=== PATIENT | female | born 1960 | race Caucasian/White ===

== ENCOUNTER 2020-02-07 09:00 | Outpatient (RCR) | payer OTHER, SELFPAY ==
--- NOTE | 2019-11-01 18:29 | PT.OIE ---
Current Diagnoses Pain in right shoulder (11/01/19) Stiffness of right shoulder, not elsewhere classified (11/01/19) Other specified postprocedural states (11/01/19) Visit Care Team Role Provider Type Fatou Harkins MD Primary Care Provider Physician Specialty: Family Practice Address: [place], [address] Email: Meeta Haley MD Attending Provider Non-Staff Referring Provider Specialty: Medical Address: Sunitha Smith [address], [address] Email: Physical Therapy Initial Evaluation PT-OP-A Visit Information Start: 10/31/19 15:46 Freq: Status: Active Protocol: Document 11/01/19 15:18 [facility]AK (Rec: 11/01/19 16:41 SAK [id number]) Out-Patient Physical Therapy Visit Information Visit Information Visit Type Initial Evaluation Visit Start Time 15:18 Visit Stop Time 16:18 Total Visit Minutes 60 Visit Number 1 Evaluation Information Evaluation Date 11/01/19 Precautions Precautions surgical drain just removed 10/29/19 PT-OP-B Current Condition Start: 10/31/19 15:46 Freq: Status: Active Protocol: Document 11/01/19 15:18 SAK (Rec: 11/01/19 16:38 SAK [id number]) Current Condition History of Current Condition Onset Date 04/13/19 Current Complaints pain and decreased ROM right shoulder, concern about lymphedema tightness History of Current Condition Diagnosed with breast cancer . Under went 15 rounds chemo plus 2 surgeries; lumpectomy with 2 lymph nodes removed September 18, October 17 7 more lymph nodes removed. Considering radiation as recommended by her physician. No evidence for metastasis. Had drain removed 10/29/19, feels tight and burning in right axilla. Concerned about regaining UE ROM and preventing lymphedema. States confusing guidance from physician office about what she can and can't do. Prior Treatments and Tests as above Future Testing and Treatments Planned possible radiation Treatment Goals Patient/Caregiver Goals Regain full active ROM of her right shoulder, screen for lymphedema and receive education regarding lymphedema prevention. Prior Functional Status Baseline Function- ADL's Independent Baseline Function- Recreation/Hobbies no limitations Current Functional Impairments (Reported) Functional Limitations- ADL's unable to reach above her head or behind her back without pain Functional Limitations- Recreation/ unable to reach overhead or Hobbies behind her back without pain PT-OP-C Subjective Start: 10/31/19 15:46 Freq: Status: Active Protocol: Document 11/01/19 17:52 [facility] (Rec: 11/01/19 18:19 [facility] [id number]) OP-PT Pain Assessment Pain Assessment Grid Paper Pain Assessment Grid Completed Yes Location right axilla Intensity 6 Scale Used Numeric (0 - 10) Description Aching,Burning Frequency Frequent Home Pain Medication Use Pain Medications Used Yes Pain Behaviors Pain Behaviors Facial Grimacing,Guarding PT-OP-J Posture/Palpation/Skin Start: 10/31/19 15:46 Freq: Status: Active Protocol: Document 11/01/19 17:52 [facility] (Rec: 11/01/19 18:19 [facility] [id number]) Posture Evaluation Position Sitting Head/C-Spine Posture Forward Head T-Spine Posture Increased Kyphosis Palpation Assessment Location right axilla Palpation Findings Edema,Tenderness Skin Assessment Incisional Assessment Incision Appearance/Comments well-healing, mildly pink surgical scars right axilla PT-OP-K Range of Motion Start: 10/31/19 15:46 Freq: Status: Active Protocol: Document 11/01/19 17:52 [facility] (Rec: 11/01/19 18:19 [facility] [id number]) Shoulder Goniometric Range of Motion Shoulder right Shoulder ROM WFL No Testing Position Supine Flexion 135 Extension 10 Abduction 85 External Rotation at 90 degrees 85 Abduction Internal Rotation 70 Internal Rotation Behind Back (text) L3 left Shoulder ROM WFL Yes Shoulder ROM Limitations Shoulder ROM Limitations Soft Tissue Tightness,Pain, Swelling PT-OP-N Lymphedema Start: 10/31/19 15:46 Freq: Status: Active Protocol: Document 11/01/19 17:52 [facility] (Rec: 11/01/19 18:19 [facility] [id number]) Lymphedema Measurements Upper Extremity Circumference Measurements Right Affected MCP 19.1 cm Wrist 15.9 cm 5 cm From Distal Crease 15.7 cm 10 cm From Distal Crease 17.4 cm 15 cm From Distal Crease 19.9 cm 20 cm From Distal Crease 21.7 cm 25 cm From Distal Crease 23.3 cm 30 cm From Distal Crease 23 cm 35 cm From Distal Crease 25.5 cm 40 cm From Distal Crease 26.3 cm 45 cm From Distal Crease 29.9 cm Axilla 39 cm Left Unaffected MCP 18.5 cm Wrist 15.6 cm 5 cm From Distal Crease 15.5 cm 10 cm From Distal Crease 17 cm 15 cm From Distal Crease 20.5 cm 20 cm From Distal Crease 22.4 cm 25 cm From Distal Crease 23.4 cm 30 cm From Distal Crease 23.1 cm 35 cm From Distal Crease 25 cm 40 cm From Distal Crease 27 cm 45 cm From Distal Crease 29.8 cm Axilla 36.5 cm PT-OP-Q Treatments Start: 10/31/19 15:46 Freq: Status: Active Protocol: Document 11/01/19 17:52 [facility] (Rec: 11/01/19 18:19 [facility] [id number]) Self-Care/Home Management Treatment Education Patient Education Home Exercise Program Lymphedema Treatment Patient Education Lymphedema Pathology verbal instruction with use of lymph system anatomy Lymphedema Prevention given written instructions and discussed Lymphedema Precautions given written instructions and discussed Compression Garments discussed obtaining compression sleeve for right UE for prevention Self Manual Lymphatic Drainage instructed and given written instructions Other instructed in HEP for gentle shoulder ROM Other Other Instruction in use of gentle ice for right axilla. PT-OP-T Assessment and Plan Start: 10/31/19 15:46 Freq: Status: Active Protocol: Document 11/01/19 17:52 [facility] (Rec: 11/01/19 18:19 [facility] [id number]) Physical Therapy Assessment Rehab Potential Rehabilitation Potential Good Evaluation Complexity Number of Personal Factors/Comorbidities 1-2 Number of Body Systems Impaired 4 or More Clinical Presentation at Evaluation Evolving Impairments Impairments Edema,Pain,ROM,Soft Tissue Mobility Goals Five Impairment knowledge deficit regarding lymphedema prevention Group Home Goal (LTG) Patient will demonstrate good understanding of lymphedema prevention and precautions, and obtain compression sleeve for right UE for prevention of lymphedema with heavy activity and for plane travel LTG Duration 12/31/19 Four Impairment soft tissue mobility Group Home Goal (LTG) Improve scar mobility of incisions to WNL to decrease paini and improve function of right shoulder LTG Duration 12/31/19 Three Impairment ROM Group Home Goal (LTG) Improve ROM to WNL to allow full active use of right UE with all usual activities LTG Duration 12/31/19 Two Impairment pain Import Export Coordinator Goal (LTG) reduce pain right axilla to no greater than 2/10 LTG Duration 12/31/19 One Impairment edema right axilla Import Export Coordinator Goal (LTG) Reduce edema right axilla to no greater than 1 cm difference as compared to left LTG Duration 12/31/19 Assessment Summary Assessment Patient presents to PT following right breast lumpectomy and lymph node removals most recently 10/18/19 with drain removal 10/29/19. Evaluation was performed with no evidence for lymphedema right UE, but with apparent post-op swelling right axilla which will need to be monitored for any development of lymphedema. Her incisions are healing well. Range of motion is decreased in her right UE and she was instructed in gentle therapeutic exercises for ROM, and was instructed in lymphedema precautions and prevention. Written information was given, as well as written HEP, and was given information regarding obtaining compression sleeve. She would benefit from skilled PT to address above PT goals to minimize her pain and swelling, improve soft tissue mobility and return her to full active use of her right UE. She is highly motivated and receptive to instruction. Physical Therapy Plan Frequency and Duration Frequency of Treatment 1x/Week Duration of Treatment 8 wks Plan of Care Start Date 11/01/19 Plan of Care End Date 12/31/19 Therapeutic Interventions Therapeutic Interventions Aquatic Therapy,Home Exercise Program,Manual Therapy,Patient /Caregiver Education,Self-Care /Home Management,Soft Tissue Mobilization,Taping, Therapeutic Activities, Therapeutic Exercises Modalities Cold Pack/Ice Massage Next Visit Focus/Plan Next Note Type Treatment Note Next Visit Plan Review HEP, gentle progression of ther ex for right UE ROM, continue patient education, initiate scar massage if incisions fully healed and instruct in self-massage.
--- NOTE | 2019-11-01 18:30 | PT.OPPOC ---
Physical, Occupational & Speech Therapy At [facility] Current Diagnoses Pain in right shoulder (11/01/19) Stiffness of right shoulder, not elsewhere classified (11/01/19) Other specified postprocedural states (11/01/19) Visit Care Team Role Provider Type Fatou Harkins MD Primary Care Provider Physician Specialty: Family Practice Address: [place], [address] Email: Meeta Haley MD Attending Provider Non-Staff Referring Provider Specialty: Medical Address: [address] [place] [address], [place], [address] Email: Plan Of Care PT-OP-T Assessment and Plan Start: 10/31/19 15:46 Freq: Status: Active Protocol: Document 11/01/19 17:52 [facility] (Rec: 11/01/19 18:19 [facility] [id number]) Physical Therapy Assessment Rehab Potential Rehabilitation Potential Good Evaluation Complexity Number of Personal Factors/Comorbidities 1-2 Number of Body Systems Impaired 4 or More Clinical Presentation at Evaluation Evolving Impairments Impairments Edema,Pain,ROM,Soft Tissue Mobility Goals Five Impairment knowledge deficit regarding lymphedema prevention Snf Goal (LTG) Patient will demonstrate good understanding of lymphedema prevention and precautions, and obtain compression sleeve for right UE for prevention of lymphedema with heavy activity and for plane travel LTG Duration 12/31/19 Four Impairment soft tissue mobility Snf Goal (LTG) Improve scar mobility of incisions to WNL to decrease paini and improve function of right shoulder LTG Duration 12/31/19 Three Impairment ROM Snf Goal (LTG) Improve ROM to WNL to allow full active use of right UE with all usual activities LTG Duration 12/31/19 Two Impairment pain Snf Goal (LTG) reduce pain right axilla to no greater than 2/10 LTG Duration 12/31/19 One Impairment edema right axilla Puller Out Goal (LTG) Reduce edema right axilla to no greater than 1 cm difference as compared to left LTG Duration 12/31/19 Assessment Summary Assessment Patient presents to PT following right breast lumpectomy and lymph node removals most recently 10/18/19 with drain removal 10/29/19. Evaluation was performed with no evidence for lymphedema right UE, but with apparent post-op swelling right axilla which will need to be monitored for any development of lymphedema. Her incisions are healing well. Range of motion is decreased in her right UE and she was instructed in gentle therapeutic exercises for ROM, and was instructed in lymphedema precautions and prevention. Written information was given, as well as written HEP, and was given information regarding obtaining compression sleeve. She would benefit from skilled PT to address above PT goals to minimize her pain and swelling, improve soft tissue mobility and return her to full active use of her right UE. She is highly motivated and receptive to instruction. Physical Therapy Plan Frequency and Duration Frequency of Treatment 1x/Week Duration of Treatment 8 wks Plan of Care Start Date 11/01/19 Plan of Care End Date 12/31/19 Therapeutic Interventions Therapeutic Interventions Aquatic Therapy,Home Exercise Program,Manual Therapy,Patient /Caregiver Education,Self-Care /Home Management,Soft Tissue Mobilization,Taping, Therapeutic Activities, Therapeutic Exercises Modalities Cold Pack/Ice Massage Next Visit Focus/Plan Next Note Type Treatment Note Next Visit Plan Review HEP, gentle progression of ther ex for right UE ROM, continue patient education, initiate scar massage if incisions fully healed and instruct in self-massage. Plan of Care Dates Plan of Care Start Date 11/01/19 Plan of Care End Date 12/31/19 Electronically Signed by: Muna Fuentes, PT 11/01/19 0187 Please Sign and Return: I have reviewed this Plan of Care and certify that the skilled therapy services above are required to meet the patient?s needs. Physician Signature Date Printed Name and Credentials Clinical Instructor Signature Printed Name and Credentials
--- NOTE | 2019-11-21 16:53 | PT.OTN ---
Current Diagnoses Pain in right shoulder (11/21/19) Stiffness of right shoulder, not elsewhere classified (11/21/19) Other specified postprocedural states (11/21/19) Physical Therapy Treatment Note PT-OP-A Visit Information Start: 10/31/19 15:46 Freq: Status: Active Protocol: Document 11/21/19 11:14 [facility] (Rec: 11/21/19 12: SAK [id number]) Out-Patient Physical Therapy Visit Information Visit Information Visit Type Treatment Note Visit Start Time 11:15 Visit Stop Time 12:21 Total Visit Minutes 71 Visit Number 2 Evaluation Information Evaluation Date 11/01/19 PT-OP-B Current Condition Start: 10/31/19 15:46 Freq: Status: Active Protocol: Document 11/21/19 11:14 [facility] (Rec: 11/21/19 12: SAK [id number]) Current Condition History of Current Condition Onset Date 04/13/19 Current Complaints pain and decreased ROM right shoulder, concern about lymphedema tightness History of Current Condition Diagnosed with breast cancer . Under went 15 rounds chemo plus 2 surgeries; lumpectomy with 2 lymph nodes removed September 18, October 17 7 more lymph nodes removed. Considering radiation as recommended by her physician. No evidence for metastasis. Had drain removed 10/29/19, feels tight and burning in right axilla. Concerned about regaining UE ROM and preventing lymphedema. States confusing guidance from physician office about what she can and can't do. Prior Treatments and Tests as above Future Testing and Treatments Planned possible radiation PT-OP-C Subjective Start: 10/31/19 15:46 Freq: Status: Active Protocol: Document 11/21/19 11:14 [facility] (Rec: 11/21/19 12: [facility]AK [id number]) OP-PT Subjective Patient Comments Patient Comments Thinks she is having some swelling in elbow and under her arm, looking at ordering a compression sleeve. Having most pain at night, usually having to take a 1/2 Hydrocodone. Saw surgeon last week and both patient and surgeon noting a little redness in breast. Patient able to palpate axillary cording which she was educated in. PT-OP-J Posture/Palpation/Skin Start: 10/31/19 15:46 Freq: Status: Active Protocol: Document 11/01/19 17:52 [facility] (Rec: 11/01/19 18:19 [facility]AK [id number]) Posture Evaluation Position Sitting Head/C-Spine Posture Forward Head T-Spine Posture Increased Kyphosis Palpation Assessment Location right axilla Palpation Findings Edema,Tenderness Skin Assessment Incisional Assessment Incision Appearance/Comments well-healing, mildly pink surgical scars right axilla PT-OP-K Range of Motion Start: 10/31/19 15:46 Freq: Status: Active Protocol: Document 11/01/19 17:52 [facility] (Rec: 11/01/19 18:19 [facility]AK [id number]) Shoulder Goniometric Range of Motion Shoulder right Shoulder ROM WFL No Testing Position Supine Flexion 135 Extension 10 Abduction 85 External Rotation at 90 degrees 85 Abduction Internal Rotation 70 Internal Rotation Behind Back (text) L3 left Shoulder ROM WFL Yes Shoulder ROM Limitations Shoulder ROM Limitations Soft Tissue Tightness,Pain, Swelling PT-OP-N Lymphedema Start: 10/31/19 15:46 Freq: Status: Active Protocol: Document 11/21/19 11:14 [facility] (Rec: 11/21/19 16:53 [facility] [id number]) Lymphedema Measurements Upper Extremity Circumference Measurements Right Affected MCP 19.1 cm Wrist 15.9 cm 5 cm From Distal Crease 15.5 cm 10 cm From Distal Crease 17 cm 15 cm From Distal Crease 19.6 cm 20 cm From Distal Crease 21.5 cm 25 cm From Distal Crease 23.2 cm 30 cm From Distal Crease 22.9 cm 35 cm From Distal Crease 24.7 cm 40 cm From Distal Crease 26.7 cm 45 cm From Distal Crease 30.1 cm Axilla 38 cm Comments Lymphedema Comments 11/21/19: trunk at praveen axilla: 96.0cm trunk at nipple line: 105.7cm PT-OP-Q Treatments Start: 10/31/19 15:46 Freq: Status: Active Protocol: Document 11/21/19 11:14 [facility] (Rec: 11/21/19 16:53 [facility]AK [id number]) Therapeutic Exercises Supine Exercises hands behind head stretch Reps/Minutes 2x shoulder ER Reps/Minutes 5x Comments end range stretch shoulder flex Equipment Used wand Reps/Minutes 10x Comments end range stretch after 10 Sitting Exercises pulleys Comments next session Lymphedema Treatment Manual Lymphatic Drainage Location right UE and breast Duration 25 Comments with manual release technique for axillary cording Lymphedema Wrapping Other Instructed in use of sports bra, compression shape wear, or obtaining compression bra, issued ship bags for use in current bra. Compression Garment Assessment Compression Garment Assessment Details Discussed options and referred patient to Sarah or [facility] Patient Education Compression Garments As above Self Manual Lymphatic Drainage Verbal discussion and demonstration Other instructed in very gradual resumption of activity, wait at least 2 more weeks for Yoga , then do short, gentle to start, monitoring for any increase in swelling. PT-OP-T Assessment and Plan Start: 10/31/19 15:46 Freq: Status: Active Protocol: Document 11/21/19 11:14 [facility] (Rec: 11/21/19 12:26 SAK [id number]) Physical Therapy Assessment Goals Five Impairment knowledge deficit regarding lymphedema prevention Pay Per Click Strategist Goal (LTG) Patient will demonstrate good understanding of lymphedema prevention and precautions, and obtain compression sleeve for right UE for prevention of lymphedema with heavy activity and for plane travel LTG Duration 12/31/19 Four Impairment soft tissue mobility Jail Goal (LTG) Improve scar mobility of incisions to WNL to decrease paini and improve function of right shoulder LTG Duration 12/31/19 Three Impairment ROM Pay Per Click Strategist Goal (LTG) Improve ROM to WNL to allow full active use of right UE with all usual activities LTG Duration 12/31/19 Two Impairment pain Jail Goal (LTG) reduce pain right axilla to no greater than 2/10 LTG Duration 12/31/19 One Impairment edema right axilla Jail Goal (LTG) Reduce edema right axilla to no greater than 1 cm difference as compared to left LTG Duration 12/31/19 Assessment Summary Assessment Demonstrating improvement in right shoulder ROM, persistent pain rquiring use of 1/2 Hydrocodone most nights. Patient has minimal (less than 1cm) circumferential changes in her arm, most the same, but noting increased subaxillary swelling as well as some palpable axillary cording of 2 .5 long. Reviewed patient's HEP, reviewed need to progress increase in activity slowly, performed MLD and patient was instructed. Issued foam chip bags for use in bra and was instructed to try sports bra as well as consult Sarah or [facility] to obtain compression sleeve as well as compression bra. Patient to return next week. Physical Therapy Plan Frequency and Duration Frequency of Treatment 1x/Week Duration of Treatment 8 wks Plan of Care Start Date 11/01/19 Plan of Care End Date 12/31/19 Therapeutic Interventions Therapeutic Interventions Aquatic Therapy,Home Exercise Program,Manual Therapy,Patient /Caregiver Education,Self-Care /Home Management,Soft Tissue Mobilization,Taping, Therapeutic Activities, Therapeutic Exercises Modalities Cold Pack/Ice Massage Next Visit Focus/Plan Next Note Type Treatment Note Next Visit Plan circumferential measurements, review home program of self massage, ther ex, evaluate use of foam chip bags, any compression bra or sleeve. Continue ROM and lymphedema management.
--- NOTE | 2019-11-28 16:32 | PT.OTN ---
Current Diagnoses Pain in right shoulder (11/28/19) Stiffness of right shoulder, not elsewhere classified (11/28/19) Other specified postprocedural states (11/28/19) Physical Therapy Treatment Note PT-OP-A Visit Information Start: 10/31/19 15:46 Freq: Status: Active Protocol: Document 11/28/19 12:47 SAK (Rec: 11/28/19 12:49 SAK [id number]) Out-Patient Physical Therapy Visit Information Visit Information Visit Type Treatment Note Visit Start Time 12:54 Visit Stop Time 13:47 Total Visit Minutes 53 Visit Number 3 Evaluation Information Evaluation Date 11/01/19 PT-OP-B Current Condition Start: 10/31/19 15:46 Freq: Status: Active Protocol: Document 11/21/19 11:14 SAK (Rec: 11/21/19 12:26 SAK [id number]) Current Condition History of Current Condition Onset Date 04/13/19 Current Complaints pain and decreased ROM right shoulder, concern about lymphedema tightness History of Current Condition Diagnosed with breast cancer . Under went 15 rounds chemo plus 2 surgeries; lumpectomy with 2 lymph nodes removed September 18, October 17 7 more lymph nodes removed. Considering radiation as recommended by her physician. No evidence for metastasis. Had drain removed 10/29/19, feels tight and burning in right axilla. Concerned about regaining UE ROM and preventing lymphedema. States confusing guidance from physician office about what she can and can't do. Prior Treatments and Tests as above Future Testing and Treatments Planned possible radiation PT-OP-C Subjective Start: 10/31/19 15:46 Freq: Status: Active Protocol: Document 11/28/19 12:47 SAK (Rec: 11/28/19 16:40 SAK [id number]) OP-PT Subjective Patient Comments Patient Comments Patient reports concern over possible increase in swelling in armpit, breast, but feels arm ok. Has been wearing post -op bra, chip bag uncomfortable. Also c/o tenderness right lower lateral ribcage for no known reason. PT-OP-J Posture/Palpation/Skin Start: 10/31/19 15:46 Freq: Status: Active Protocol: Document 11/01/19 17:52 SAK (Rec: 11/01/19 18:19 SAK [id number]) Posture Evaluation Position Sitting Head/C-Spine Posture Forward Head T-Spine Posture Increased Kyphosis Palpation Assessment Location right axilla Palpation Findings Edema,Tenderness Skin Assessment Incisional Assessment Incision Appearance/Comments well-healing, mildly pink surgical scars right axilla PT-OP-K Range of Motion Start: 10/31/19 15:46 Freq: Status: Active Protocol: Document 11/01/19 17:52 SAK (Rec: 11/01/19 18:19 SAK [id number]) Shoulder Goniometric Range of Motion Shoulder right Shoulder ROM WFL No Testing Position Supine Flexion 135 Extension 10 Abduction 85 External Rotation at 90 degrees 85 Abduction Internal Rotation 70 Internal Rotation Behind Back (text) L3 left Shoulder ROM WFL Yes Shoulder ROM Limitations Shoulder ROM Limitations Soft Tissue Tightness,Pain, Swelling PT-OP-N Lymphedema Start: 10/31/19 15:46 Freq: Status: Active Protocol: Document 11/28/19 12:47 SAK (Rec: 11/28/19 16:38 SAK [id number]) Lymphedema Measurements Comments Lymphedema Comments 11/28/19: trunk at praveen subaxilla : 100 cm trunk at nipple line: 109 cm PT-OP-Q Treatments Start: 10/31/19 15:46 Freq: Status: Active Protocol: Document 11/28/19 12:47 SAK (Rec: 11/28/19 16:38 [facility] [id number]) Therapeutic Exercises Supine Exercises deep breathing Supine Exercise Name abdominal, lateral chest hands behind head stretch Comments HEP shoulder ER Comments HEP shoulder flex Comments HEP Sidelying Exercises shoulder abduction Reps/Minutes 5x reach and roll Reps/Minutes 5x Lymphedema Treatment Manual Lymphatic Drainage Location right trunk and breast Duration 32 Comments with manual release technique for axillary cording, MFR subaxillary region with instruction for gentle self MFR Lymphedema Wrapping Other Reviewed use of sports bra, compression shape wear, or obtaining compression bra, issued new chip bag, foam, and soft spot for use in current bra. Compression Garment Assessment Compression Garment Assessment Details Patient to consult with [facility] PT-OP-T Assessment and Plan Start: 10/31/19 15:46 Freq: Status: Active Protocol: Document 11/28/19 12:47 SAK (Rec: 11/28/19 12:49 SAK [id number]) Physical Therapy Assessment Goals Five Impairment knowledge deficit regarding lymphedema prevention [facility] Goal (LTG) Patient will demonstrate good understanding of lymphedema prevention and precautions, and obtain compression sleeve for right UE for prevention of lymphedema with heavy activity and for plane travel LTG Duration 12/31/19 Four Impairment soft tissue mobility [facility] Goal (LTG) Improve scar mobility of incisions to WNL to decrease paini and improve function of right shoulder LTG Duration 12/31/19 Three Impairment ROM Wire Rigger Goal (LTG) Improve ROM to WNL to allow full active use of right UE with all usual activities LTG Duration 12/31/19 Two Impairment pain Wire Rigger Goal (LTG) reduce pain right axilla to no greater than 2/10 LTG Duration 12/31/19 One Impairment edema right axilla Wire Rigger Goal (LTG) Reduce edema right axilla to no greater than 1 cm difference as compared to left LTG Duration 12/31/19 Assessment Summary Assessment Circumferential measurements in trunk at subaxillary region and nipple line increased from last session. She was issued chip bag, channeled foam, and soft spot for breast and trunk lymphedema reduction as options for inside bra. She has just been wearing post-op bra which is not providing adequate compression. She was instructed to obtain either a sports bra or compression bra; plans to make appointment with Lamont at [facility] to consult with them about this. In the meantime will use above bra inserts. She has been compliant with self massage and ther ex. She was instructed in self MFR for gentle subaxillary release and demonstrated good understanding. Also instructed in upper trunk rotation and sidelying shoulder abduction exercises. Uncertain cause of lower lateral ribcage tenderness, patient denies any trauma, will watch, contact physician if doesn't improve or worsens. Physical Therapy Plan Frequency and Duration Frequency of Treatment 1x/Week Duration of Treatment 8 wks Plan of Care Start Date 11/01/19 Plan of Care End Date 12/31/19 Therapeutic Interventions Therapeutic Interventions Aquatic Therapy,Home Exercise Program,Manual Therapy,Patient /Caregiver Education,Self-Care /Home Management,Soft Tissue Mobilization,Taping, Therapeutic Activities, Therapeutic Exercises Modalities Cold Pack/Ice Massage Next Visit Focus/Plan Next Note Type Treatment Note Next Visit Plan Circumferential measurements. Continue ROM and lymphedema management, manual treatments for soft tissue mobilization.
--- NOTE | 2019-11-28 16:41 | PT.OTN ---
Current Diagnoses Pain in right shoulder (11/28/19) Stiffness of right shoulder, not elsewhere classified (11/28/19) Other specified postprocedural states (11/28/19) Physical Therapy Treatment Note PT-OP-A Visit Information Start: 10/31/19 15:46 Freq: Status: Active Protocol: Document 11/28/19 12:47 SAK (Rec: 11/28/19 12:49 SAK [id number]) Out-Patient Physical Therapy Visit Information Visit Information Visit Type Treatment Note Visit Start Time 12:54 Visit Stop Time 13:47 Total Visit Minutes 53 Visit Number 3 Evaluation Information Evaluation Date 11/01/19 PT-OP-B Current Condition Start: 10/31/19 15:46 Freq: Status: Active Protocol: Document 11/21/19 11:14 SAK (Rec: 11/21/19 12:26 SAK [id number]) Current Condition History of Current Condition Onset Date 04/13/19 Current Complaints pain and decreased ROM right shoulder, concern about lymphedema tightness History of Current Condition Diagnosed with breast cancer . Under went 15 rounds chemo plus 2 surgeries; lumpectomy with 2 lymph nodes removed September 18, October 17 7 more lymph nodes removed. Considering radiation as recommended by her physician. No evidence for metastasis. Had drain removed 10/29/19, feels tight and burning in right axilla. Concerned about regaining UE ROM and preventing lymphedema. States confusing guidance from physician office about what she can and can't do. Prior Treatments and Tests as above Future Testing and Treatments Planned possible radiation PT-OP-C Subjective Start: 10/31/19 15:46 Freq: Status: Active Protocol: Document 11/28/19 12:47 SAK (Rec: 11/28/19 16:40 SAK [id number]) OP-PT Subjective Patient Comments Patient Comments Patient reports concern over possible increase in swelling in armpit, breast, but feels arm ok. Has been wearing post -op bra, chip bag uncomfortable. Also c/o tenderness right lower lateral ribcage for no known reason. PT-OP-J Posture/Palpation/Skin Start: 10/31/19 15:46 Freq: Status: Active Protocol: Document 11/01/19 17:52 SAK (Rec: 11/01/19 18:19 SAK [id number]) Posture Evaluation Position Sitting Head/C-Spine Posture Forward Head T-Spine Posture Increased Kyphosis Palpation Assessment Location right axilla Palpation Findings Edema,Tenderness Skin Assessment Incisional Assessment Incision Appearance/Comments well-healing, mildly pink surgical scars right axilla PT-OP-K Range of Motion Start: 10/31/19 15:46 Freq: Status: Active Protocol: Document 11/01/19 17:52 SAK (Rec: 11/01/19 18:19 SAK [id number]) Shoulder Goniometric Range of Motion Shoulder right Shoulder ROM WFL No Testing Position Supine Flexion 135 Extension 10 Abduction 85 External Rotation at 90 degrees 85 Abduction Internal Rotation 70 Internal Rotation Behind Back (text) L3 left Shoulder ROM WFL Yes Shoulder ROM Limitations Shoulder ROM Limitations Soft Tissue Tightness,Pain, Swelling PT-OP-N Lymphedema Start: 10/31/19 15:46 Freq: Status: Active Protocol: Document 11/28/19 12:47 SAK (Rec: 11/28/19 16:38 SAK [id number]) Lymphedema Measurements Comments Lymphedema Comments 11/28/19: trunk at praveen subaxilla : trunk at nipple line: PT-OP-Q Treatments Start: 10/31/19 15:46 Freq: Status: Active Protocol: Document 11/28/19 12:47 SAK (Rec: 11/28/19 16:38 [facility] [id number]) Therapeutic Exercises Supine Exercises deep breathing Supine Exercise Name abdominal, lateral chest hands behind head stretch Comments HEP shoulder ER Comments HEP shoulder flex Comments HEP Sidelying Exercises shoulder abduction Reps/Minutes 5x reach and roll Reps/Minutes 5x Lymphedema Treatment Manual Lymphatic Drainage Location right trunk and breast Duration 32 Comments with manual release technique for axillary cording, MFR subaxillary region with instruction for gentle self MFR Lymphedema Wrapping Other Reviewed use of sports bra, compression shape wear, or obtaining compression bra, issued new chip bag, foam, and soft spot for use in current bra. Compression Garment Assessment Compression Garment Assessment Details Patient to consult with [facility] PT-OP-T Assessment and Plan Start: 10/31/19 15:46 Freq: Status: Active Protocol: Document 11/28/19 12:47 SAK (Rec: 11/28/19 12:49 SAK [id number]) Physical Therapy Assessment Goals Five Impairment knowledge deficit regarding lymphedema prevention Care Home Goal (LTG) Patient will demonstrate good understanding of lymphedema prevention and precautions, and obtain compression sleeve for right UE for prevention of lymphedema with heavy activity and for plane travel LTG Duration 12/31/19 Four Impairment soft tissue mobility Care Home Goal (LTG) Improve scar mobility of incisions to WNL to decrease paini and improve function of right shoulder LTG Duration 12/31/19 Three Impairment ROM Care Home Goal (LTG) Improve ROM to WNL to allow full active use of right UE with all usual activities LTG Duration 12/31/19 Two Impairment pain Care Home Goal (LTG) reduce pain right axilla to no greater than 2/10 LTG Duration 12/31/19 One Impairment edema right axilla Care Home Goal (LTG) Reduce edema right axilla to no greater than 1 cm difference as compared to left LTG Duration 12/31/19 Assessment Summary Assessment Circumferential measurements in trunk at subaxillary region and nipple line increased from last session. She was issued chip bag, channeled foam, and soft spot for breast and trunk lymphedema reduction as options for inside bra. She has just been wearing post-op bra which is not providing adequate compression. She was instructed to obtain either a sports bra or compression bra; plans to make appointment with Lamont at [facility] to consult with them about this. In the meantime will use above bra inserts. She has been compliant with self massage and ther ex. She was instructed in self MFR for gentle subaxillary release and demonstrated good understanding. Also instructed in upper trunk rotation and sidelying shoulder abduction exercises. Uncertain cause of lower lateral ribcage tenderness, patient denies any trauma, will watch, contact physician if doesn't improve or worsens. Physical Therapy Plan Frequency and Duration Frequency of Treatment 1x/Week Duration of Treatment 8 wks Plan of Care Start Date 11/01/19 Plan of Care End Date 12/31/19 Therapeutic Interventions Therapeutic Interventions Aquatic Therapy,Home Exercise Program,Manual Therapy,Patient /Caregiver Education,Self-Care /Home Management,Soft Tissue Mobilization,Taping, Therapeutic Activities, Therapeutic Exercises Modalities Cold Pack/Ice Massage Next Visit Focus/Plan Next Note Type Treatment Note Next Visit Plan Circumferential measurements. Continue ROM and lymphedema management, manual treatments for soft tissue mobilization.
--- NOTE | 2019-12-11 14:59 | PT.OTN ---
Current Diagnoses Pain in right shoulder (12/11/19) Stiffness of right shoulder, not elsewhere classified (12/11/19) Other specified postprocedural states (12/11/19) Physical Therapy Treatment Note PT-OP-A Visit Information Start: 10/31/19 15:46 Freq: Status: Active Protocol: Document 12/11/19 09:34 SAK (Rec: 12/11/19 09:26 SAK [id number]) Out-Patient Physical Therapy Visit Information Visit Information Visit Type Treatment Note Visit Note Patient late due to delayed [place] Visit Start Time 09:34 Visit Stop Time 09:50 Total Visit Minutes 16 Visit Number 4 Evaluation Information Evaluation Date 11/01/19 PT-OP-B Current Condition Start: 10/31/19 15:46 Freq: Status: Active Protocol: Document 11/21/19 11:14 SAK (Rec: 11/21/19 12:26 SAK [id number]) Current Condition History of Current Condition Onset Date 04/13/19 Current Complaints pain and decreased ROM right shoulder, concern about lymphedema tightness History of Current Condition Diagnosed with breast cancer . Under went 15 rounds chemo plus 2 surgeries; lumpectomy with 2 lymph nodes removed September 18, October 17 7 more lymph nodes removed. Considering radiation as recommended by her physician. No evidence for metastasis. Had drain removed 10/29/19, feels tight and burning in right axilla. Concerned about regaining UE ROM and preventing lymphedema. States confusing guidance from physician office about what she can and can't do. Prior Treatments and Tests as above Future Testing and Treatments Planned possible radiation PT-OP-C Subjective Start: 10/31/19 15:46 Freq: Status: Active Protocol: Document 12/11/19 09:34 SAK (Rec: 12/11/19 09:26 SAK [id number]) OP-PT Subjective Patient Comments Patient Comments Patient went to [facility] obtained compression bra, concerned about fit. Anticipating start of radiation 12/13/19, needs updated measurements to take to physician this week. Doesn 't feel arm swelling but willing to have it rechecked today as well. Will be having 15 radiation treatments. PT-OP-J Posture/Palpation/Skin Start: 10/31/19 15:46 Freq: Status: Active Protocol: Document 11/01/19 17:52 SAK (Rec: 11/01/19 18:19 [facility] [id number]) Posture Evaluation Position Sitting Head/C-Spine Posture Forward Head T-Spine Posture Increased Kyphosis Palpation Assessment Location right axilla Palpation Findings Edema,Tenderness Skin Assessment Incisional Assessment Incision Appearance/Comments well-healing, mildly pink surgical scars right axilla PT-OP-K Range of Motion Start: 10/31/19 15:46 Freq: Status: Active Protocol: Document 11/01/19 17:52 [facility] (Rec: 11/01/19 18:19 [facility] [id number]) Shoulder Goniometric Range of Motion Shoulder right Shoulder ROM WFL No Testing Position Supine Flexion 135 Extension 10 Abduction 85 External Rotation at 90 degrees 85 Abduction Internal Rotation 70 Internal Rotation Behind Back (text) L3 left Shoulder ROM WFL Yes Shoulder ROM Limitations Shoulder ROM Limitations Soft Tissue Tightness,Pain, Swelling PT-OP-N Lymphedema Start: 10/31/19 15:46 Freq: Status: Active Protocol: Document 12/11/19 09:34 [facility] (Rec: 12/11/19 09:26 [facility] [id number]) Lymphedema Measurements Upper Extremity Circumference Measurements Right Affected MCP 19 cm Wrist 16.1 cm 5 cm From Distal Crease 15.9 cm 10 cm From Distal Crease 17.3 cm 15 cm From Distal Crease 20.3 cm 20 cm From Distal Crease 21.1 cm 25 cm From Distal Crease 23.4 cm 30 cm From Distal Crease 23.6 cm 35 cm From Distal Crease 25.9 cm 40 cm From Distal Crease 28.1 cm 45 cm From Distal Crease 31 cm Comments Lymphedema Comments 11/28/19: trunk at praveen subaxilla : 100 cm trunk at nipple line: 107.4 cm PT-OP-Q Treatments Start: 10/31/19 15:46 Freq: Status: Active Protocol: Document 12/05/19 09:34 [facility] (Rec: 12/11/19 14:47 [facility] [id number]) Lymphedema Treatment Compression Garment Assessment Compression Garment Assessment Details Good fit of compression bra noted. Patient instructed to wear during the day, insert chip bag or soft spot as needed. Obtain compression sleeve as well. Patient Education Self Manual Lymphatic Drainage demonstration with patient return demo PT-OP-T Assessment and Plan Start: 10/31/19 15:46 Freq: Status: Active Protocol: Document 12/11/19 09:34 MAGY (Rec: 12/11/19 09:26 [facility] [id number]) Physical Therapy Assessment Goals Five Impairment knowledge deficit regarding lymphedema prevention [employer] Wafer Goal (LTG) Patient will demonstrate good understanding of lymphedema prevention and precautions, and obtain compression sleeve for right UE for prevention of lymphedema with heavy activity and for plane travel LTG Duration 12/31/19 Four Impairment soft tissue mobility [employer] Wafer Goal (LTG) Improve scar mobility of incisions to WNL to decrease paini and improve function of right shoulder LTG Duration 12/31/19 Three Impairment ROM Halfway Goal (LTG) Improve ROM to WNL to allow full active use of right UE with all usual activities LTG Duration 12/31/19 Two Impairment pain [employer] Wafer Goal (LTG) reduce pain right axilla to no greater than 2/10 LTG Duration 12/31/19 One Impairment edema right axilla Halfway Goal (LTG) Reduce edema right axilla to no greater than 1 cm difference as compared to left LTG Duration 12/31/19 Assessment Summary Assessment Patient circumference at axillary and nipple lines improved likely due to use of compression bra. Right UE measurements have increased indicating need for compression sleeve as well. Patient will pursue this at [facility]. Physical Therapy Plan Frequency and Duration Frequency of Treatment 1x/Week Duration of Treatment 8 wks Plan of Care Start Date 11/01/19 Plan of Care End Date 12/31/19 Therapeutic Interventions Therapeutic Interventions Aquatic Therapy,Home Exercise Program,Manual Therapy,Patient /Caregiver Education,Self-Care /Home Management,Soft Tissue Mobilization,Taping, Therapeutic Activities, Therapeutic Exercises Modalities Cold Pack/Ice Massage Next Visit Focus/Plan Next Note Type Treatment Note Next Visit Plan Circumferential measurements. Continue ROM and lymphedema management, manual treatments for soft tissue mobilization. Instruct patient to avoid compression over irradiated area, MLD to be gentle and with skin damage during radiation will focus on UE lymphedema management.
--- NOTE | 2019-12-17 17:01 | PT.OTN ---
Current Diagnoses Pain in right shoulder (12/17/19) Stiffness of right shoulder, not elsewhere classified (12/17/19) Other specified postprocedural states (12/17/19) Physical Therapy Treatment Note PT-OP-A Visit Information Start: 10/31/19 15:46 Freq: Status: Active Protocol: Document 12/17/19 16:52 SAK (Rec: 12/17/19 16:59 [facility] [id number]) Out-Patient Physical Therapy Visit Information Visit Information Visit Type Treatment Note Visit Start Time 09:45 Visit Stop Time 10:30 Total Visit Minutes 45 Visit Number 5 Evaluation Information Evaluation Date 11/01/19 PT-OP-B Current Condition Start: 10/31/19 15:46 Freq: Status: Active Protocol: Document 11/21/19 11:14 SAK (Rec: 11/21/19 12:26 SAK [id number]) Current Condition History of Current Condition Onset Date 04/13/19 Current Complaints pain and decreased ROM right shoulder, concern about lymphedema tightness History of Current Condition Diagnosed with breast cancer . Under went 15 rounds chemo plus 2 surgeries; lumpectomy with 2 lymph nodes removed September 18, October 17 7 more lymph nodes removed. Considering radiation as recommended by her physician. No evidence for metastasis. Had drain removed 10/29/19, feels tight and burning in right axilla. Concerned about regaining UE ROM and preventing lymphedema. States confusing guidance from physician office about what she can and can't do. Prior Treatments and Tests as above Future Testing and Treatments Planned possible radiation PT-OP-C Subjective Start: 10/31/19 15:46 Freq: Status: Active Protocol: Document 12/17/19 16:52 SAK (Rec: 12/17/19 16:59 [facility] [id number]) OP-PT Subjective Patient Comments Patient Comments Patient reports wearing compression bra and swell spot , [facility] States she feels her swelling is better. Patient has not started radiation yet, may opt not to due to being borderline per her physician. Has 1 more week to decide. PT-OP-J Posture/Palpation/Skin Start: 10/31/19 15:46 Freq: Status: Active Protocol: Document 11/01/19 17:52 SAK (Rec: 11/01/19 18:19 SAK [id number]) Posture Evaluation Position Sitting Head/C-Spine Posture Forward Head T-Spine Posture Increased Kyphosis Palpation Assessment Location right axilla Palpation Findings Edema,Tenderness Skin Assessment Incisional Assessment Incision Appearance/Comments well-healing, mildly pink surgical scars right axilla PT-OP-K Range of Motion Start: 10/31/19 15:46 Freq: Status: Active Protocol: Document 11/01/19 17:52 [facility] (Rec: 11/01/19 18:19 [facility] [id number]) Shoulder Goniometric Range of Motion Shoulder right Shoulder ROM WFL No Testing Position Supine Flexion 135 Extension 10 Abduction 85 External Rotation at 90 degrees 85 Abduction Internal Rotation 70 Internal Rotation Behind Back (text) L3 left Shoulder ROM WFL Yes Shoulder ROM Limitations Shoulder ROM Limitations Soft Tissue Tightness,Pain, Swelling PT-OP-N Lymphedema Start: 10/31/19 15:46 Freq: Status: Active Protocol: Document 12/17/19 16:52 [facility] (Rec: 12/17/19 16:59 [facility] [id number]) Lymphedema Measurements Upper Extremity Circumference Measurements Right Affected MCP 18.5 cm Wrist 15.9 cm 5 cm From Distal Crease 15.9 cm 10 cm From Distal Crease 17.4 cm 15 cm From Distal Crease 19.8 cm 20 cm From Distal Crease 21.5 cm 25 cm From Distal Crease 23.2 cm 30 cm From Distal Crease 22.7 cm 35 cm From Distal Crease 24.6 cm 40 cm From Distal Crease 26.6 cm 45 cm From Distal Crease 29.7 cm Comments Lymphedema Comments trunk at praveen subaxilla: 98.2cm trunk at nipple line: 105.0 cm PT-OP-Q Treatments Start: 10/31/19 15:46 Freq: Status: Active Protocol: Document 12/17/19 16:59 [facility] (Rec: 12/17/19 17:01 [facility] [id number]) Lymphedema Treatment Manual Lymphatic Drainage Location right trunk and breast Duration 32 Comments with manual release technique for axillary cording, MFR subaxillary region Compression Garment Assessment Compression Garment Assessment Details Good fit of compression sleeve , compression bra with swell spot. Other Other circumferential measurements PT-OP-T Assessment and Plan Start: 10/31/19 15:46 Freq: Status: Active Protocol: Document 12/17/19 16:52 [facility] (Rec: 12/17/19 16:59 [facility] [id number]) Physical Therapy Assessment Goals Five Impairment knowledge deficit regarding lymphedema prevention Automated Equipment Engineer Technician Goal (LTG) Patient will demonstrate good understanding of lymphedema prevention and precautions, and obtain compression sleeve for right UE for prevention of lymphedema with heavy activity and for plane travel LTG Duration 12/31/19 Four Impairment soft tissue mobility Automated Equipment Engineer Technician Goal (LTG) Improve scar mobility of incisions to WNL to decrease paini and improve function of right shoulder LTG Duration 12/31/19 Three Impairment ROM Care Home Goal (LTG) Improve ROM to WNL to allow full active use of right UE with all usual activities LTG Duration 12/31/19 Two Impairment pain Automated Equipment Engineer Technician Goal (LTG) reduce pain right axilla to no greater than 2/10 LTG Duration 12/31/19 One Impairment edema right axilla Automated Equipment Engineer Technician Goal (LTG) Reduce edema right axilla to no greater than 1 cm difference as compared to left LTG Duration 12/31/19 Assessment Summary Assessment Good improvement in circumferencial measurements. Patient demonstrated good understanding of correct use and care of compression garments. Continues with HEP and self-massage, deep breathing. Axillary cording decreased but still present. Physical Therapy Plan Frequency and Duration Frequency of Treatment 1x/Week Duration of Treatment 8 wks Plan of Care Start Date 11/01/19 Plan of Care End Date 12/31/19 Therapeutic Interventions Therapeutic Interventions Aquatic Therapy,Home Exercise Program,Manual Therapy,Patient /Caregiver Education,Self-Care /Home Management,Soft Tissue Mobilization,Taping, Therapeutic Activities, Therapeutic Exercises Modalities Cold Pack/Ice Massage Next Visit Focus/Plan Next Note Type Treatment Note Next Visit Plan Circumferential measurements. Continue ROM and lymphedema management, manual treatments for soft tissue mobilization. Instruct patient to avoid compression over irradiated area, MLD to be gentle and with skin damage during radiation will focus on UE lymphedema management.
--- NOTE | 2019-12-24 13:44 | PT.OTN ---
Current Diagnoses Pain in right shoulder (12/24/19) Stiffness of right shoulder, not elsewhere classified (12/24/19) Other specified postprocedural states (12/24/19) Physical Therapy Treatment Note PT-OP-A Visit Information Start: 10/31/19 15:46 Freq: Status: Active Protocol: Document 12/24/19 09:50 SAK (Rec: 12/24/19 13:34 [facility] [id number]) Out-Patient Physical Therapy Visit Information Visit Information Visit Type Treatment Note Visit Start Time 09:48 Visit Stop Time 10:33 Total Visit Minutes 45 Visit Number 6 Evaluation Information Evaluation Date 11/01/19 PT-OP-B Current Condition Start: 10/31/19 15:46 Freq: Status: Active Protocol: Document 11/21/19 11:14 SAK (Rec: 11/21/19 12:26 SAK [id number]) Current Condition History of Current Condition Onset Date 04/13/19 Current Complaints pain and decreased ROM right shoulder, concern about lymphedema tightness History of Current Condition Diagnosed with breast cancer . Under went 15 rounds chemo plus 2 surgeries; lumpectomy with 2 lymph nodes removed September 18, October 17 7 more lymph nodes removed. Considering radiation as recommended by her physician. No evidence for metastasis. Had drain removed 10/29/19, feels tight and burning in right axilla. Concerned about regaining UE ROM and preventing lymphedema. States confusing guidance from physician office about what she can and can't do. Prior Treatments and Tests as above Future Testing and Treatments Planned possible radiation PT-OP-C Subjective Start: 10/31/19 15:46 Freq: Status: Active Protocol: Document 12/24/19 09:50 SAK (Rec: 12/24/19 13:34 [facility] [id number]) OP-PT Subjective Patient Comments Patient Comments Patient expressing anxiety over needing to make decision about radiation, will make after going to [facility] today. Patient continues with self- massage, HEP, wearing compression bra and swell-spot . PT-OP-J Posture/Palpation/Skin Start: 10/31/19 15:46 Freq: Status: Active Protocol: Document 11/01/19 17:52 SAK (Rec: 11/01/19 18:19 SAK [id number]) Posture Evaluation Position Sitting Head/C-Spine Posture Forward Head T-Spine Posture Increased Kyphosis Palpation Assessment Location right axilla Palpation Findings Edema,Tenderness Skin Assessment Incisional Assessment Incision Appearance/Comments well-healing, mildly pink surgical scars right axilla PT-OP-K Range of Motion Start: 10/31/19 15:46 Freq: Status: Active Protocol: Document 11/01/19 17:52 SAK (Rec: 11/01/19 18:19 SAK [id number]) Shoulder Goniometric Range of Motion Shoulder right Shoulder ROM WFL No Testing Position Supine Flexion 135 Extension 10 Abduction 85 External Rotation at 90 degrees 85 Abduction Internal Rotation 70 Internal Rotation Behind Back (text) L3 left Shoulder ROM WFL Yes Shoulder ROM Limitations Shoulder ROM Limitations Soft Tissue Tightness,Pain, Swelling PT-OP-N Lymphedema Start: 10/31/19 15:46 Freq: Status: Active Protocol: Document 12/24/19 09:50 SAK (Rec: 12/24/19 13:34 [facility] [id number]) Lymphedema Measurements Upper Extremity Circumference Measurements Right Affected MCP 19 cm Wrist 16.2 cm 5 cm From Distal Crease 16 cm 10 cm From Distal Crease 17.1 cm 15 cm From Distal Crease 19.9 cm 20 cm From Distal Crease 21.7 cm 25 cm From Distal Crease 23.4 cm 30 cm From Distal Crease 22.7 cm 35 cm From Distal Crease 24.9 cm 40 cm From Distal Crease 26.7 cm 45 cm From Distal Crease 30.2 cm Comments Lymphedema Comments trunk at praveen subax: 97.5cm nipple: 103.5 PT-OP-Q Treatments Start: 10/31/19 15:46 Freq: Status: Active Protocol: Document 12/24/19 09:50 [facility] (Rec: 12/24/19 13:34 [facility] [id number]) Therapeutic Exercises Supine Exercises pec stretch Equipment Used 65 cm therapy ball Reps/Minutes 2x deep breathing Supine Exercise Name abdominal, lateral chest shoulder flex Equipment Used 65 cm therapy ball Reps/Minutes 2x Standing Exercises pec stretch Equipment Used doorway Reps/Minutes 2x Lymphedema Treatment Manual Lymphatic Drainage Location right trunk and breast Duration 30 Comments with manual release technique for axillary cording, MFR subaxillary region Other Other circumferential measurements PT-OP-T Assessment and Plan Start: 10/31/19 15:46 Freq: Status: Active Protocol: Document 12/24/19 09:50 [facility] (Rec: 12/24/19 10:33 [facility] [id number]) Physical Therapy Assessment Goals Five Impairment knowledge deficit regarding lymphedema prevention Long-Term Goal (LTG) Patient will demonstrate good understanding of lymphedema prevention and precautions, and obtain compression sleeve for right UE for prevention of lymphedema with heavy activity and for plane travel LTG Duration 12/31/19 Four Impairment soft tissue mobility Long-Term Goal (LTG) Improve scar mobility of incisions to WNL to decrease paini and improve function of right shoulder LTG Duration 12/31/19 Three Impairment ROM Title I Math Tutor Goal (LTG) Improve ROM to WNL to allow full active use of right UE with all usual activities LTG Duration 12/31/19 Two Impairment pain Title I Math Tutor Goal (LTG) reduce pain right axilla to no greater than 2/10 LTG Duration 12/31/19 One Impairment edema right axilla Long-Term Goal (LTG) Reduce edema right axilla to no greater than 1 cm difference as compared to left LTG Duration 12/31/19 Assessment Summary Assessment Stable circumferential measurements (see details above), improving soft tissue mobility in axilla, scar; responding well to MFR. Decreased axillary cording 50% since eval. REcommend continued skilled physical therapy to help patient fully achieve PT goals. Physical Therapy Plan Frequency and Duration Frequency of Treatment 1x/Week Duration of Treatment 8 wks Plan of Care Start Date 11/01/19 Plan of Care End Date 12/31/19 Therapeutic Interventions Therapeutic Interventions Aquatic Therapy,Home Exercise Program,Manual Therapy,Patient /Caregiver Education,Self-Care /Home Management,Soft Tissue Mobilization,Taping, Therapeutic Activities, Therapeutic Exercises Modalities Cold Pack/Ice Massage Next Visit Focus/Plan Next Note Type Treatment Note Next Visit Plan [facility] to make final decision about [facility]. Continue lymphedema management, soft tissue mobilization, ther ex, manual techniques.
--- NOTE | 2019-12-24 15:08 | PT.OTN ---
Current Diagnoses Pain in right shoulder (12/24/19) Stiffness of right shoulder, not elsewhere classified (12/24/19) Other specified postprocedural states (12/24/19) Physical Therapy Treatment Note PT-OP-A Visit Information Start: 10/31/19 15:46 Freq: Status: Active Protocol: Document 12/24/19 09:50 SAK (Rec: 12/24/19 13:34 [facility] [id number]) Out-Patient Physical Therapy Visit Information Visit Information Visit Type Treatment Note Visit Start Time 09:48 Visit Stop Time 10:33 Total Visit Minutes 45 Visit Number 6 Evaluation Information Evaluation Date 11/01/19 PT-OP-B Current Condition Start: 10/31/19 15:46 Freq: Status: Active Protocol: Document 11/21/19 11:14 SAK (Rec: 11/21/19 12:26 SAK [id number]) Current Condition History of Current Condition Onset Date 04/13/19 Current Complaints pain and decreased ROM right shoulder, concern about lymphedema tightness History of Current Condition Diagnosed with breast cancer . Under went 15 rounds chemo plus 2 surgeries; lumpectomy with 2 lymph nodes removed September 18, October 17 7 more lymph nodes removed. Considering radiation as recommended by her physician. No evidence for metastasis. Had drain removed 10/29/19, feels tight and burning in right axilla. Concerned about regaining UE ROM and preventing lymphedema. States confusing guidance from physician office about what she can and can't do. Prior Treatments and Tests as above Future Testing and Treatments Planned possible radiation PT-OP-C Subjective Start: 10/31/19 15:46 Freq: Status: Active Protocol: Document 12/24/19 09:50 SAK (Rec: 12/24/19 13:34 [facility] [id number]) OP-PT Subjective Patient Comments Patient Comments Patient expressing anxiety over needing to make decision about radiation, will make after going to [facility]. Patient continues with self- massage, HEP, wearing compression bra and swell-spot . PT-OP-J Posture/Palpation/Skin Start: 10/31/19 15:46 Freq: Status: Active Protocol: Document 11/01/19 17:52 SAK (Rec: 11/01/19 18:19 SAK [id number]) Posture Evaluation Position Sitting Head/C-Spine Posture Forward Head T-Spine Posture Increased Kyphosis Palpation Assessment Location right axilla Palpation Findings Edema,Tenderness Skin Assessment Incisional Assessment Incision Appearance/Comments well-healing, mildly pink surgical scars right axilla PT-OP-K Range of Motion Start: 10/31/19 15:46 Freq: Status: Active Protocol: Document 11/01/19 17:52 SAK (Rec: 11/01/19 18:19 SAK [id number]) Shoulder Goniometric Range of Motion Shoulder right Shoulder ROM WFL No Testing Position Supine Flexion 135 Extension 10 Abduction 85 External Rotation at 90 degrees 85 Abduction Internal Rotation 70 Internal Rotation Behind Back (text) L3 left Shoulder ROM WFL Yes Shoulder ROM Limitations Shoulder ROM Limitations Soft Tissue Tightness,Pain, Swelling PT-OP-N Lymphedema Start: 10/31/19 15:46 Freq: Status: Active Protocol: Document 12/24/19 09:50 SAK (Rec: 12/24/19 13:34 [facility] [id number]) Lymphedema Measurements Upper Extremity Circumference Measurements Right Affected MCP 19 cm Wrist 16.2 cm 5 cm From Distal Crease 16 cm 10 cm From Distal Crease 17.1 cm 15 cm From Distal Crease 19.9 cm 20 cm From Distal Crease 21.7 cm 25 cm From Distal Crease 23.4 cm 30 cm From Distal Crease 22.7 cm 35 cm From Distal Crease 24.9 cm 40 cm From Distal Crease 26.7 cm 45 cm From Distal Crease 30.2 cm Comments Lymphedema Comments trunk at praveen subax: 97.5cm nipple: 103.5 PT-OP-Q Treatments Start: 10/31/19 15:46 Freq: Status: Active Protocol: Document 12/24/19 09:50 [facility] (Rec: 12/24/19 13:34 [facility] [id number]) Therapeutic Exercises Supine Exercises pec stretch Equipment Used 65 cm therapy ball Reps/Minutes 2x deep breathing Supine Exercise Name abdominal, lateral chest shoulder flex Equipment Used 65 cm therapy ball Reps/Minutes 2x Standing Exercises pec stretch Equipment Used doorway Reps/Minutes 2x Lymphedema Treatment Manual Lymphatic Drainage Location right trunk and breast Duration 30 Comments with manual release technique for axillary cording, MFR subaxillary region Other Other circumferential measurements PT-OP-T Assessment and Plan Start: 10/31/19 15:46 Freq: Status: Active Protocol: Document 12/24/19 09:50 [facility] (Rec: 12/24/19 10:33 [facility] [id number]) Physical Therapy Assessment Goals Five Impairment knowledge deficit regarding lymphedema prevention Mcc Goal (LTG) Patient will demonstrate good understanding of lymphedema prevention and precautions, and obtain compression sleeve for right UE for prevention of lymphedema with heavy activity and for plane travel LTG Duration 12/31/19 Four Impairment soft tissue mobility Mcc Goal (LTG) Improve scar mobility of incisions to WNL to decrease paini and improve function of right shoulder LTG Duration 12/31/19 Three Impairment ROM Foreign Food Specialty Cook Goal (LTG) Improve ROM to WNL to allow full active use of right UE with all usual activities LTG Duration 12/31/19 Two Impairment pain Foreign Food Specialty Cook Goal (LTG) reduce pain right axilla to no greater than 2/10 LTG Duration 12/31/19 One Impairment edema right axilla Mcc Goal (LTG) Reduce edema right axilla to no greater than 1 cm difference as compared to left LTG Duration 12/31/19 Assessment Summary Assessment Stable circumferential measurements (see details above), improving soft tissue mobility in axilla, scar; responding well to MFR. Decreased axillary cording 50% since eval. REcommend continued skilled physical therapy to help patient fully achieve PT goals. Physical Therapy Plan Frequency and Duration Frequency of Treatment 1x/Week Duration of Treatment 8 wks Plan of Care Start Date 11/01/19 Plan of Care End Date 12/31/19 Therapeutic Interventions Therapeutic Interventions Aquatic Therapy,Home Exercise Program,Manual Therapy,Patient /Caregiver Education,Self-Care /Home Management,Soft Tissue Mobilization,Taping, Therapeutic Activities, Therapeutic Exercises Modalities Cold Pack/Ice Massage Next Visit Focus/Plan Next Note Type Treatment Note Next Visit Plan [facility] to make final decision about radiation. Continue lymphedema management, soft tissue mobilization, ther ex, manual techniques. Modification will be required if patient decides to do radiation treatments.
--- NOTE | 2020-01-07 10:04 | PT-OP ANOTE ---
No treatment due to insurance issues; approval not received yet
--- NOTE | 2020-01-28 10:07 | PT.OTRE ---
Current Diagnoses Pain in right shoulder (01/28/20) Stiffness of right shoulder, not elsewhere classified (01/28/20) Other specified postprocedural states (01/28/20) Visit Care Team Role Provider Type Fatou Harkins MD Primary Care Provider Physician Specialty: Family Practice Address: [place], [address] Email: Meeta Haley MD Attending Provider Non-Staff Referring Provider Specialty: Medical Address: Sunitha Smith [address], [address] Email: Physical Therapy Re-Evaluation PT-OP-A Visit Information Start: 10/31/19 15:46 Freq: Status: Active Protocol: Document 01/28/20 11:13 SAK (Rec: 01/28/20 12:08 SAK [id number]) Out-Patient Physical Therapy Visit Information Visit Information Visit Type Treatment Note Visit Start Time 11:15 Visit Stop Time 12:04 Total Visit Minutes 49 Visit Number 7 Evaluation Information Evaluation Date 11/01/19 PT-OP-B Current Condition Start: 10/31/19 15:46 Freq: Status: Active Protocol: Document 11/21/19 11:14 SAK (Rec: 11/21/19 12:26 SAK [id number]) Current Condition History of Current Condition Onset Date 04/13/19 Current Complaints pain and decreased ROM right shoulder, concern about lymphedema tightness History of Current Condition Diagnosed with breast cancer . Under went 15 rounds chemo plus 2 surgeries; lumpectomy with 2 lymph nodes removed September 18, October 17 7 more lymph nodes removed. Considering radiation as recommended by her physician. No evidence for metastasis. Had drain removed 10/29/19, feels tight and burning in right axilla. Concerned about regaining UE ROM and preventing lymphedema. States confusing guidance from physician office about what she can and can't do. Prior Treatments and Tests as above Future Testing and Treatments Planned possible radiation PT-OP-C Subjective Start: 10/31/19 15:46 Freq: Status: Active Protocol: Document 01/28/20 11:13 SAK (Rec: 01/28/20 12:08 SAK [id number]) OP-PT Subjective Patient Comments Patient Comments Done with radiation, has been measuring, states she started to swell. States her compression and a natural supplementnt Bromelian (sp ?) that also seemed helpful. Continues to do deep breathing and yoga in am, self massage. Has gotten sleeve and wears occasionally PT-OP-J Posture/Palpation/Skin Start: 10/31/19 15:46 Freq: Status: Active Protocol: Document 11/01/19 17:52 SAK (Rec: 11/01/19 18:19 [facility] [id number]) Posture Evaluation Position Sitting Head/C-Spine Posture Forward Head T-Spine Posture Increased Kyphosis Palpation Assessment Location right axilla Palpation Findings Edema,Tenderness Skin Assessment Incisional Assessment Incision Appearance/Comments well-healing, mildly pink surgical scars right axilla PT-OP-K Range of Motion Start: 10/31/19 15:46 Freq: Status: Active Protocol: Document 11/01/19 17:52 SAK (Rec: 11/01/19 18:19 [facility] [id number]) Shoulder Goniometric Range of Motion Shoulder Measured in Degrees right Shoulder ROM WFL No Testing Position Supine Flexion 135 Extension 10 Abduction 85 External Rotation at 90 degrees 85 Abduction Internal Rotation 70 Internal Rotation Behind Back (text) L3 left Shoulder ROM WFL Yes Shoulder ROM Limitations Shoulder ROM Limitations Soft Tissue Tightness,Pain, Swelling PT-OP-N Lymphedema Start: 10/31/19 15:46 Freq: Status: Active Protocol: Document 12/24/19 09:50 SAK (Rec: 12/24/19 13:34 [facility] [id number]) Lymphedema Measurements Upper Extremity Circumference Measurements Right Affected MCP 19 cm Wrist 16.2 cm 5 cm From Distal Crease 16 cm 10 cm From Distal Crease 17.1 cm 15 cm From Distal Crease 19.9 cm 20 cm From Distal Crease 21.7 cm 25 cm From Distal Crease 23.4 cm 30 cm From Distal Crease 22.7 cm 35 cm From Distal Crease 24.9 cm 40 cm From Distal Crease 26.7 cm 45 cm From Distal Crease 30.2 cm Comments Lymphedema Comments trunk at praveen subax: 97.5cm nipple: 103.5 PT-OP-Q Treatments Start: 10/31/19 15:46 Freq: Status: Active Protocol: Document 01/28/20 11:13 SAK (Rec: 01/28/20 12:08 [facility] [id number]) Therapeutic Exercises Supine Exercises pec stretch Equipment Used 75 cm therapy ball Reps/Minutes 2x ea Comments pec major, pec minor, lats deep breathing Supine Exercise Name abdominal, lateral chest Lymphedema Treatment Manual Lymphatic Drainage Location right breast and trunk Duration 30 Comments no axillary cording noted today. Other Other circumferential measurements PT-OP-T Assessment and Plan Start: 10/31/19 15:46 Freq: Status: Active Protocol: Document 01/28/20 11:13 [facility] (Rec: 01/28/20 12:08 [facility] [id number]) Physical Therapy Assessment Goals Five Impairment knowledge deficit regarding lymphedema prevention Cellophaner Goal (LTG) Patient will demonstrate good understanding of lymphedema prevention and precautions, and obtain compression sleeve for right UE for prevention of lymphedema with heavy activity and for plane travel LTG Duration achieved Four Impairment soft tissue mobility Retirement Goal (LTG) Improve scar mobility of incisions to WNL to decrease paini and improve function of right shoulder 01/28/20: good goal progress LTG Duration 03/26/20 Three Impairment ROM Retirement Goal (LTG) Improve ROM to WNL to allow full active use of right UE with all usual activities 01/28/20: good goal progress, tightened during radiation, but making improvements again LTG Duration 03/26/20 Two Impairment pain Cellophaner Goal (LTG) reduce pain right axilla to no greater than 2/10 01/28/20: had been making good progress but due to tissue tightening from radiation has had some increase in pain to 3 -4/10 at times LTG Duration 03/26/20 One Impairment edema right axilla Retirement Goal (LTG) Reduce edema right axilla to no greater than 1 cm difference as compared to left 01/28/20: edema increased s/p radiation, patient wearing compression bra and swell spot as well as self-massage and exercise as instructed. LTG Duration 03/26/20 Assessment Summary Assessment subaxillary measurement decreased, nipple line measurement increased, UE measurements variable with many slight increased likely as result of radiation. Patient doing well with self- care as instructed including skin care, self manual lymphatic drainage, compression through use of swell spot and compression bra , and has obtained a compression sleeve. No palpable axillary cording today. Anticipate with further skilled therapy patient will be able to achieve all her above goals. Physical Therapy Plan Frequency and Duration Frequency of Treatment 1x/Week Duration of Treatment 8 wks Plan of Care Start Date 01/28/20 Plan of Care End Date 03/26/20 Therapeutic Interventions Therapeutic Interventions Aquatic Therapy,Home Exercise Program,Manual Therapy,Patient /Caregiver Education,Self-Care /Home Management,Soft Tissue Mobilization,Taping, Therapeutic Activities, Therapeutic Exercises Modalities Cold Pack/Ice Massage Next Visit Focus/Plan Next Note Type Treatment Note Next Visit Plan circumferential measurements, continue lymphedema management , patient to bring compression sleeve for assessment.
--- NOTE | 2020-01-28 10:08 | PT.OPPOC ---
Physical, Occupational & Speech Therapy At [facility] Current Diagnoses Pain in right shoulder (01/28/20) Stiffness of right shoulder, not elsewhere classified (01/28/20) Other specified postprocedural states (01/28/20) Visit Care Team Role Provider Type Fatou Harkins MD Primary Care Provider Physician Specialty: Family Practice Address: [place], [address] Email: Meeta Haley MD Attending Provider Non-Staff Referring Provider Specialty: Medical Address: [address] [place] [address], [place], [address] Email: Plan Of Care PT-OP-T Assessment and Plan Start: 10/31/19 15:46 Freq: Status: Active Protocol: Document 01/28/20 11:13 SAK (Rec: 01/28/20 12:08 SAK [id number]) Physical Therapy Assessment Goals Five Impairment knowledge deficit regarding lymphedema prevention [employer] Goal (LTG) Patient will demonstrate good understanding of lymphedema prevention and precautions, and obtain compression sleeve for right UE for prevention of lymphedema with heavy activity and for plane travel LTG Duration achieved Four Impairment soft tissue mobility [employer] Goal (LTG) Improve scar mobility of incisions to WNL to decrease paini and improve function of right shoulder 01/28/20: good goal progress LTG Duration 03/26/20 Three Impairment ROM Senior Care Goal (LTG) Improve ROM to WNL to allow full active use of right UE with all usual activities 01/28/20: good goal progress, tightened during radiation, but making improvements again LTG Duration 03/26/20 Two Impairment pain [employer] Goal (LTG) reduce pain right axilla to no greater than 2/10 01/28/20: had been making good progress but due to tissue tightening from radiation has had some increase in pain to 3 -4/10 at times LTG Duration 03/26/20 One Impairment edema right axilla Senior Care Goal (LTG) Reduce edema right axilla to no greater than 1 cm difference as compared to left 01/28/20: edema increased s/p radiation, patient wearing compression bra and swell spot as well as self-massage and exercise as instructed. LTG Duration 03/26/20 Assessment Summary Assessment subaxillary measurement decreased, nipple line measurement increased, UE measurements variable with many slight increased likely as result of radiation. Patient doing well with self- care as instructed including skin care, self manual lymphatic drainage, compression through use of swell spot and compression bra , and has obtained a compression sleeve. No palpable axillary cording today. Anticipate with further skilled therapy patient will be able to achieve all her above goals. Physical Therapy Plan Frequency and Duration Frequency of Treatment 1x/Week Duration of Treatment 8 wks Plan of Care Start Date 01/28/20 Plan of Care End Date 03/26/20 Therapeutic Interventions Therapeutic Interventions Aquatic Therapy,Home Exercise Program,Manual Therapy,Patient /Caregiver Education,Self-Care /Home Management,Soft Tissue Mobilization,Taping, Therapeutic Activities, Therapeutic Exercises Modalities Cold Pack/Ice Massage Next Visit Focus/Plan Next Note Type Treatment Note Next Visit Plan circumferential measurements, continue lymphedema management , patient to bring compression sleeve for assessment. Plan of Care Dates Plan of Care Start Date 01/28/20 Plan of Care End Date 03/26/20 Electronically Signed by: Muna Fuentes, PT 01/30/20 1009 Please Sign and Return: I have reviewed this Plan of Care and certify that the skilled therapy services above are required to meet the patient?s needs. Physician Signature Date Printed Name and Credentials Clinical Instructor Signature Printed Name and Credentials
--- NOTE | 2020-01-28 16:05 | PT.OTN ---
Current Diagnoses Pain in right shoulder (01/28/20) Stiffness of right shoulder, not elsewhere classified (01/28/20) Other specified postprocedural states (01/28/20) Physical Therapy Treatment Note PT-OP-A Visit Information Start: 10/31/19 15:46 Freq: Status: Active Protocol: Document 01/28/20 11:13 SAK (Rec: 01/28/20 12:08 SAK [id number]) Out-Patient Physical Therapy Visit Information Visit Information Visit Type Treatment Note Visit Start Time 11:15 Visit Stop Time 12:04 Total Visit Minutes 49 Visit Number 7 Evaluation Information Evaluation Date 11/01/19 PT-OP-B Current Condition Start: 10/31/19 15:46 Freq: Status: Active Protocol: Document 11/21/19 11:14 SAK (Rec: 11/21/19 12:26 SAK [id number]) Current Condition History of Current Condition Onset Date 04/13/19 Current Complaints pain and decreased ROM right shoulder, concern about lymphedema tightness History of Current Condition Diagnosed with breast cancer . Under went 15 rounds chemo plus 2 surgeries; lumpectomy with 2 lymph nodes removed September 18, October 17 7 more lymph nodes removed. Considering radiation as recommended by her physician. No evidence for metastasis. Had drain removed 10/29/19, feels tight and burning in right axilla. Concerned about regaining UE ROM and preventing lymphedema. States confusing guidance from physician office about what she can and can't do. Prior Treatments and Tests as above Future Testing and Treatments Planned possible radiation PT-OP-C Subjective Start: 10/31/19 15:46 Freq: Status: Active Protocol: Document 01/28/20 11:13 SAK (Rec: 01/28/20 12:08 SAK [id number]) OP-PT Subjective Patient Comments Patient Comments Done with radiation, has been measuring, states she started to swell. States her compression and a natural supplementnt Bromelian (sp ?) that also seemed helpful. Continues to do deep breathing and yoga in am, self massage. Has gotten sleeve and wears occasionally PT-OP-J Posture/Palpation/Skin Start: 10/31/19 15:46 Freq: Status: Active Protocol: Document 11/01/19 17:52 SAK (Rec: 11/01/19 18:19 SAK [id number]) Posture Evaluation Position Sitting Head/C-Spine Posture Forward Head T-Spine Posture Increased Kyphosis Palpation Assessment Location right axilla Palpation Findings Edema,Tenderness Skin Assessment Incisional Assessment Incision Appearance/Comments well-healing, mildly pink surgical scars right axilla PT-OP-K Range of Motion Start: 10/31/19 15:46 Freq: Status: Active Protocol: Document 11/01/19 17:52 SAK (Rec: 11/01/19 18:19 [facility] [id number]) Shoulder Goniometric Range of Motion Shoulder right Shoulder ROM WFL No Testing Position Supine Flexion 135 Extension 10 Abduction 85 External Rotation at 90 degrees 85 Abduction Internal Rotation 70 Internal Rotation Behind Back (text) L3 left Shoulder ROM WFL Yes Shoulder ROM Limitations Shoulder ROM Limitations Soft Tissue Tightness,Pain, Swelling PT-OP-N Lymphedema Start: 10/31/19 15:46 Freq: Status: Active Protocol: Document 12/24/19 09:50 SAK (Rec: 12/24/19 13:34 [facility] [id number]) Lymphedema Measurements Upper Extremity Circumference Measurements Right Affected MCP 19 cm Wrist 16.2 cm 5 cm From Distal Crease 16 cm 10 cm From Distal Crease 17.1 cm 15 cm From Distal Crease 19.9 cm 20 cm From Distal Crease 21.7 cm 25 cm From Distal Crease 23.4 cm 30 cm From Distal Crease 22.7 cm 35 cm From Distal Crease 24.9 cm 40 cm From Distal Crease 26.7 cm 45 cm From Distal Crease 30.2 cm Comments Lymphedema Comments trunk at praveen subax: 97.5cm nipple: 103.5 PT-OP-Q Treatments Start: 10/31/19 15:46 Freq: Status: Active Protocol: Document 01/28/20 11:13 SAK (Rec: 01/28/20 12:08 [facility] [id number]) Therapeutic Exercises Supine Exercises pec stretch Equipment Used 75 cm therapy ball Reps/Minutes 2x ea Comments pec major, pec minor, lats deep breathing Supine Exercise Name abdominal, lateral chest Lymphedema Treatment Manual Lymphatic Drainage Location right breast and trunk Duration 30 Comments no axillary cording noted today. Other Other circumferential measurements PT-OP-T Assessment and Plan Start: 10/31/19 15:46 Freq: Status: Active Protocol: Document 01/28/20 11:13 MAGY (Rec: 01/28/20 12:08 [facility] [id number]) Physical Therapy Assessment Goals Five Impairment knowledge deficit regarding lymphedema prevention Skilled Nursing Goal (LTG) Patient will demonstrate good understanding of lymphedema prevention and precautions, and obtain compression sleeve for right UE for prevention of lymphedema with heavy activity and for plane travel LTG Duration 12/31/19 Four Impairment soft tissue mobility Skilled Nursing Goal (LTG) Improve scar mobility of incisions to WNL to decrease paini and improve function of right shoulder LTG Duration 12/31/19 Three Impairment ROM Knifeman Goal (LTG) Improve ROM to WNL to allow full active use of right UE with all usual activities LTG Duration 12/31/19 Two Impairment pain Knifeman Goal (LTG) reduce pain right axilla to no greater than 2/10 LTG Duration 12/31/19 One Impairment edema right axilla Skilled Nursing Goal (LTG) Reduce edema right axilla to no greater than 1 cm difference as compared to left LTG Duration 12/31/19 Assessment Summary Assessment subaxillary measurement decreased, nipple line measurement increased, UE measurements variable with many slight increased. Physical Therapy Plan Frequency and Duration Frequency of Treatment 1x/Week Duration of Treatment 8 wks Plan of Care Start Date 11/01/19 Plan of Care End Date 12/31/19 Therapeutic Interventions Therapeutic Interventions Aquatic Therapy,Home Exercise Program,Manual Therapy,Patient /Caregiver Education,Self-Care /Home Management,Soft Tissue Mobilization,Taping, Therapeutic Activities, Therapeutic Exercises Modalities Cold Pack/Ice Massage Next Visit Focus/Plan Next Note Type Treatment Note Next Visit Plan circumferential measurements, continue lymphedema management , patient to bring compression sleeve for assessment.
--- NOTE | 2020-02-07 12:53 | PT.OTN ---
Current Diagnoses Pain in right shoulder (02/07/20) Stiffness of right shoulder, not elsewhere classified (02/07/20) Other specified postprocedural states (02/07/20) Physical Therapy Treatment Note PT-OP-A Visit Information Start: 10/31/19 15:46 Freq: Status: Active Protocol: Document 02/07/20 09:02 SAK (Rec: 02/07/20 09:16 SAK [id number]) Out-Patient Physical Therapy Visit Information Visit Information Visit Type Treatment Note Visit Start Time 09:45 Visit Stop Time 10:30 Total Visit Minutes 45 Visit Number 8 Evaluation Information Evaluation Date 11/01/19 PT-OP-B Current Condition Start: 10/31/19 15:46 Freq: Status: Active Protocol: Document 11/21/19 11:14 SAK (Rec: 11/21/19 12:26 SAK [id number]) Current Condition History of Current Condition Onset Date 04/13/19 Current Complaints pain and decreased ROM right shoulder, concern about lymphedema tightness History of Current Condition Diagnosed with breast cancer . Under went 15 rounds chemo plus 2 surgeries; lumpectomy with 2 lymph nodes removed September 18, October 17 7 more lymph nodes removed. Considering radiation as recommended by her physician. No evidence for metastasis. Had drain removed 10/29/19, feels tight and burning in right axilla. Concerned about regaining UE ROM and preventing lymphedema. States confusing guidance from physician office about what she can and can't do. Prior Treatments and Tests as above Future Testing and Treatments Planned possible radiation PT-OP-C Subjective Start: 10/31/19 15:46 Freq: Status: Active Protocol: Document 02/07/20 09:02 SAK (Rec: 02/07/20 09:16 SAK [id number]) OP-PT Subjective Patient Comments Patient Comments OVerall doing well, breast still feels hot, thinks swelling may have gone down some. Worried about scar mobility. Good compliance to HEP, self massage, wearing compression. PT-OP-J Posture/Palpation/Skin Start: 10/31/19 15:46 Freq: Status: Active Protocol: Document 11/01/19 17:52 SAK (Rec: 11/01/19 18:19 SAK [id number]) Posture Evaluation Position Sitting Head/C-Spine Posture Forward Head T-Spine Posture Increased Kyphosis Palpation Assessment Location right axilla Palpation Findings Edema,Tenderness Skin Assessment Incisional Assessment Incision Appearance/Comments well-healing, mildly pink surgical scars right axilla PT-OP-K Range of Motion Start: 10/31/19 15:46 Freq: Status: Active Protocol: Document 11/01/19 17:52 [facility] (Rec: 11/01/19 18:19 [facility] [id number]) Shoulder Goniometric Range of Motion Shoulder right Shoulder ROM WFL No Testing Position Supine Flexion 135 Extension 10 Abduction 85 External Rotation at 90 degrees 85 Abduction Internal Rotation 70 Internal Rotation Behind Back (text) L3 left Shoulder ROM WFL Yes Shoulder ROM Limitations Shoulder ROM Limitations Soft Tissue Tightness,Pain, Swelling PT-OP-N Lymphedema Start: 10/31/19 15:46 Freq: Status: Active Protocol: Document 12/24/19 09:50 [facility] (Rec: 12/24/19 13:34 [facility] [id number]) Lymphedema Measurements Upper Extremity Circumference Measurements Right Affected MCP 19 cm Wrist 16.2 cm 5 cm From Distal Crease 16 cm 10 cm From Distal Crease 17.1 cm 15 cm From Distal Crease 19.9 cm 20 cm From Distal Crease 21.7 cm 25 cm From Distal Crease 23.4 cm 30 cm From Distal Crease 22.7 cm 35 cm From Distal Crease 24.9 cm 40 cm From Distal Crease 26.7 cm 45 cm From Distal Crease 30.2 cm Comments Lymphedema Comments trunk at praveen subax: 97.5cm nipple: 103.5 PT-OP-Q Treatments Start: 10/31/19 15:46 Freq: Status: Active Protocol: Document 02/07/20 09:02 [facility] (Rec: 02/07/20 09:16 [facility] [id number]) Manual Therapy Treatment Soft Tissue Mobilization subaxillary MFR Mobilization Type Myofascial Release Intensity/Depth gentle Comments use of dycem Lymphedema Treatment Manual Lymphatic Drainage Location right breast and trunk Duration 30 Comments no axillary cording noted today. Patient Education Other gentle pin and stretch subaxillary area. self MFR using Dycem Other Other circumferential measurements PT-OP-T Assessment and Plan Start: 10/31/19 15:46 Freq: Status: Active Protocol: Document 02/07/20 09:02 [facility] (Rec: 02/07/20 09:16 SAK [id number]) Physical Therapy Assessment Goals Five Impairment knowledge deficit regarding lymphedema prevention [employer]or Goal (LTG) Patient will demonstrate good understanding of lymphedema prevention and precautions, and obtain compression sleeve for right UE for prevention of lymphedema with heavy activity and for plane travel LTG Duration achieved Four Impairment soft tissue mobility Halfway Goal (LTG) Improve scar mobility of incisions to WNL to decrease paini and improve function of right shoulder 01/28/20: good goal progress LTG Duration 03/26/20 Three Impairment ROM [employer] Selector Goal (LTG) Improve ROM to WNL to allow full active use of right UE with all usual activities 01/28/20: good goal progress, tightened during radiation, but making improvements again LTG Duration 03/26/20 Two Impairment pain [employer] Selector Goal (LTG) reduce pain right axilla to no greater than 2/10 01/28/20: had been making good progress but due to tissue tightening from radiation has had some increase in pain to 3 -4/10 at times LTG Duration 03/26/20 One Impairment edema right axilla [employer] Selector Goal (LTG) Reduce edema right axilla to no greater than 1 cm difference as compared to left 01/28/20: edema increased s/p radiation, patient wearing compression bra and swell spot as well as self-massage and exercise as instructed. LTG Duration 03/26/20 Assessment Summary Assessment Discussed [facility] PT Youtube videos. Patient measurements stable in arm and decreased in breast today. Good progress, patient highly compliant with self-care. Physical Therapy Plan Frequency and Duration Frequency of Treatment 1x/Week Duration of Treatment 8 wks Plan of Care Start Date 01/28/20 Plan of Care End Date 03/26/20 Therapeutic Interventions Therapeutic Interventions Aquatic Therapy,Home Exercise Program,Manual Therapy,Patient /Caregiver Education,Self-Care /Home Management,Soft Tissue Mobilization,Taping, Therapeutic Activities, Therapeutic Exercises Modalities Cold Pack/Ice Massage Next Visit Focus/Plan Next Note Type Treatment Note Next Visit Plan circumferential measurements, continue lymphedema management , patient to bring compression sleeve for assessment.
--- NOTE | 2020-05-01 11:08 | PT.OPDS ---
Current Diagnoses Pain in right shoulder (02/07/20) Stiffness of right shoulder, not elsewhere classified (02/07/20) Other specified postprocedural states (02/07/20) Visit Care Team Role Provider Type Fatou Harkins MD Primary Care Provider Physician Specialty: Family Practice Address: [place], [address] Email: Meeta Haley MD Attending Provider Non-Staff Referring Provider Specialty: Medical Address: Sunitha Smith [address], [address] Email: Visit Number Visit Number 8 Discharge Summary PT-OP-B Current Condition Start: 10/31/19 15:46 Freq: Status: Active Protocol: Document 11/21/19 11:14 SAK (Rec: 11/21/19 12:26 SAK [id number]) Current Condition History of Current Condition Onset Date 04/13/19 Current Complaints pain and decreased ROM right shoulder, concern about lymphedema tightness History of Current Condition Diagnosed with breast cancer . Under went 15 rounds chemo plus 2 surgeries; lumpectomy with 2 lymph nodes removed September 18, October 17 7 more lymph nodes removed. Considering radiation as recommended by her physician. No evidence for metastasis. Had drain removed 10/29/19, feels tight and burning in right axilla. Concerned about regaining UE ROM and preventing lymphedema. States confusing guidance from physician office about what she can and can't do. Prior Treatments and Tests as above Future Testing and Treatments Planned possible radiation PT-OP-C Subjective Start: 10/31/19 15:46 Freq: Status: Active Protocol: Document 02/07/20 09:02 SAK (Rec: 02/07/20 09:16 SAK [id number]) OP-PT Subjective Patient Comments Patient Comments OVerall doing well, breast still feels hot, thinks swelling may have gone down some. Worried about scar mobility. Good compliance to HEP, self massage, wearing compression. PT-OP-J Posture/Palpation/Skin Start: 10/31/19 15:46 Freq: Status: Active Protocol: Document 11/01/19 17:52 SAK (Rec: 11/01/19 18:19 SAK [id number]) Posture Evaluation Position Sitting Head/C-Spine Posture Forward Head T-Spine Posture Increased Kyphosis Palpation Assessment Location right axilla Palpation Findings Edema,Tenderness Skin Assessment Incisional Assessment Incision Appearance/Comments well-healing, mildly pink surgical scars right axilla PT-OP-K Range of Motion Start: 10/31/19 15:46 Freq: Status: Active Protocol: Document 11/01/19 17:52 SAK (Rec: 11/01/19 18:19 SAK [id number]) Shoulder Goniometric Range of Motion Shoulder right Shoulder ROM WFL No Testing Position Supine Flexion 135 Extension 10 Abduction 85 External Rotation at 90 degrees 85 Abduction Internal Rotation 70 Internal Rotation Behind Back (text) L3 left Shoulder ROM WFL Yes Shoulder ROM Limitations Shoulder ROM Limitations Soft Tissue Tightness,Pain, Swelling PT-OP-N Lymphedema Start: 10/31/19 15:46 Freq: Status: Active Protocol: Document 12/24/19 09:50 SAK (Rec: 12/24/19 13:34 SAK [id number]) Lymphedema Measurements Upper Extremity Circumference Measurements Right Affected MCP 19 cm Wrist 16.2 cm 5 cm From Distal Crease 16 cm 10 cm From Distal Crease 17.1 cm 15 cm From Distal Crease 19.9 cm 20 cm From Distal Crease 21.7 cm 25 cm From Distal Crease 23.4 cm 30 cm From Distal Crease 22.7 cm 35 cm From Distal Crease 24.9 cm 40 cm From Distal Crease 26.7 cm 45 cm From Distal Crease 30.2 cm Comments Lymphedema Comments trunk at praveen subax: 97.5cm nipple: 103.5 PT-OP-T Assessment and Plan Start: 10/31/19 15:46 Freq: Status: Active Protocol: Document 05/01/20 11:08 SAK (Rec: 05/01/20 11:08 SAK [id number]) Physical Therapy Plan Discharge Physical Therapy Discharge Reasons Patient Request
== END 2020-05-02 09:38 ==
LOC: PHYS 09:00
PROVIDERS: PCP Family Medicine; Referring Provider Surgery Surgical Oncology; Visit Provider Surgery Surgical Oncology
DX: Z98.890 Other specified postprocedural states (principal); M25.611 Stiffness of right shoulder, not elsewhere classified; M25.511 Pain in right shoulder
CPT/HCPCS: 97110; 97140; 97161; 97535